=== PATIENT | male | born 1950 | race Caucasian/White ===

== ENCOUNTER 2021-04-30 11:53 | Emergency (ER) | payer OTHER ==
[2021-04-30] MEDS ORDERED: VENTOLIN HFA IN18 GM INH ×2 (14:35→14:38)
[2021-04-30] MEDS ORDERED: MEDROL 4MG DOSEP4 MG PO ×2 (14:35→14:38)
== END 2021-04-30 14:45 | disposition home or self-care (01) ==
LOC: FER 11:53
DX: U07.1 COVID-19 (principal); I10 Essential (primary) hypertension
CPT/HCPCS: 71045; U0002